=== PATIENT | female | born 1965 | race Caucasian/White ===

== ENCOUNTER 2017-05-18 18:48 | Emergency (ER) | payer OTHER ==
[~2017-05-18] VITALS: Ht 177.8 cm; Wt 90.7 kg
[2017-05-18] MEDS ORDERED: AMLODIPINE-BEN1 EAC5 PO (19:10)
[2017-05-18] MEDS ORDERED: ALPRAZOLAM0.25 M1 PO (19:11)
[2017-05-18] MEDS ORDERED: NEXIUM20 M1 PO (19:11)
[2017-05-18] MEDS ORDERED: POTASS PO (19:13)
[2017-05-18] MEDS ORDERED: MAG PO (19:13)
[2017-05-18] MEDS ORDERED: CAL PO (19:13)
--- NOTE | 2017-05-18 19:43 | ED GI/GU/ABDOMINAL COMPLAINT ---
History of Present Illness General Chief Complaint: Abdominal Pain/Flank Pain Stated Complaint: RIGHT LOWER ABD PAIN Source: patient Exam Limitations: no limitations Vital Signs & Intake/Output Vital Signs & Intake/Output Vital Signs Date Time Temp Pulse Resp B/P B/P Pulse O2 O2 Flow FiO2 Mean Ox Delivery Rate 05/18 1906 97.1 82 18 113/75 98 Room Air Allergies Coded Allergies: nitrofurantoin (From MACROBID) (Severe, HEART PALP 05/18/17) Reconcile Medications Alprazolam 0.25 MG TABLET 1 TAB PO QPM PRN SLEEP/ANXIETY (Reported) Amlodipine Besylate/Benazepril (Amlodipine-Benazepril 10-40 MG) 10 MG-40 MG CAPSULE 1 CAP PO DAILY BP (Reported) Esomeprazole Magnesium (Nexium) 20 MG CAPSULE.DR 1 CAP PO BID GI (Reported) Ondansetron (Zofran Odt) 4 MG TAB.RAPDIS 1 TAB SL TID PRN nausea [POTASS/MAG/SATURNINO] 1 CAP PO DAILY SUPPLEMENT (Reported) Triage Note: PT STATES THAT SHE HAS BEEN HAVING PAIN IN HER R SIDE ABD THAT HAS BEEN INCREASING IN INTENSITY SINCE YESTERDAY. 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 N/V. Triage Nurses Notes Reviewed? yes LMP (ages 10-50): hysterectomy ? N Is pt currently ? No Onset: Gradual Duration: week(s): Timing: recent history Quality/Severity: sharpness, severe Location: right lower quadrant HPI: 52-year-old female with history of lupus presents to emergency department complaining of right lower quadrant pain 2 weeks. Patient states that pain initially was mild however now she states pain is severe, stabbing. He is also complaining of nausea and bilious nonbloody vomiting for the past 5 days, she is not able to tolerate food by mouth. She is also complaining of diarrhea times > 1 month, nonbloody. She has intermittent fevers however this is normal for her due to her lupus. The patient admits to drinking 1 bottle of wine per day. She denies smoking or drug use. The patient has been seen for this pain in the past and had abdominal ultrasound done however she states that this ultrasound did not assess the area in which she is having pain. 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 She denies chills, cough, sore throat, dizziness, lightheadedness, chest pain, dyspnea. (JAMAAL YI PA-C) Past History Travel History Traveled to [place] past 21 day No Medical History Any Pertinent Medical History? 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 No (JAMAAL YI PA-C) Review of Systems Review of Systems Constitutional: Reports: no symptoms. EENTM: Reports: no symptoms. Respiratory: Reports: no symptoms. Cardiovascular: Reports: no symptoms. GI: Reports: see HPI. Genitourinary: Reports: no symptoms. Musculoskeletal: Reports: no symptoms. Skin: Reports: no symptoms. Neurological/Psychological: Reports: see HPI. Hematologic/Endocrine: Reports: no symptoms. Immunologic/Allergic: Reports: no symptoms. All Other Systems: Reviewed and Negative (JAMAAL YI PA-C) Physical Exam Physical Exam Gastrointestinal: SEE BELOW Comments: Well-developed well-nourished person in no acute distress HEENT: HEAD is atraumatic. moist mucous membranes. Neck: Supple, normal range of motion without pain or tenderness Back: Nontender, no CVA tenderness. Full range of motion Cardiovascular: Regular rate and rhythms no murmurs rubs or gallops Respiratory:No respiratory distress. Patient speaking in full complete sentences. Breath sounds clear to auscultation bilaterally: NO W/R/R Abdomen: Soft, RLQ tenderness, nondistended, no appreciable organomegaly. Normal bowel sounds. No rebound/guarding, No appreciable enlargement of the abdominal aorta, No ascites. Extremity: No edema, full range of motion of extremities Neuro: Alert oriented x3, motor sensory normal, There were no obvious focal neurologic abnormalities. Skin: No appreciable rash on exposed skin, skin is warm and dry. Psych: Mood and affect is normal, memory and judgment is normal. Core Measures ACS in differential dx? No Severe Sepsis Present: No Septic Shock Present: No (JAMAAL YI PA-C) Progress Differential Diagnosis: appendicitis, biliary colic, cholecystitis, diverticulitis, gastritis, hepatitis, inflamm bowel dis, SBO Plan of Care: Orders Procedure Date/time Status LIPASE 05/18 1943 Complete ETHANOL 05/18 1943 Complete COMPREHENSIVE METABOLIC PANEL 05/18 1943 Complete CBC WITHOUT DIFFERENTIAL 05/18 1943 Complete AMYLASE 05/18 1943 Complete Laboratory Tests 05/18/171946: Anion Gap 15, Estimated GFR > 60, BUN/Creatinine Ratio 11.3, Glucose 104 H, Calcium 9.5, Total Bilirubin 0.5, AST 148 H, ALT 128 H, Alkaline Phosphatase 122, Total Protein 7.0, Albumin 4.3, Globulin 2.7, Albumin/Globulin Ratio 1.6, Amylase 52, Lipase 286, CBC w Diff NO MAN DIFF REQ, RBC 4.41, MCV 99.0, MCH 34.1 H, RDW 13.3, MPV 8.4, Gran % 50.4, Lymphocytes % 42.9, Monocytes % 5.2, Eosinophils % 0.7, Basophils % 0.8, Absolute Granulocytes 3.7, Absolute Lymphocytes 3.1, Absolute Monocytes 0.4, Absolute Eosinophils 0, Absolute Basophils 0.1, PUBS MCHC 34.4, Serum Alcohol 281.0 CT scan is within normal limits, blood work shows mild elevation of liver enzymes, likely related to patient's daily alcohol consumption. The patient was discussed with Dr. Zhu. The patient was given Zofran for her nausea. The patient was instructed to follow-up with her GI doctor for further workup and possible further imaging and blood tests. The patient was also instructed to follow-up with her neurocritical care physician as this may be related to rule out immune condition. The patient was educated on alcohol consumption and the risks involved with daily alcohol use. The patient is nontoxic appearing, her vital signs are stable, she is in no acute distress. The patient is in agreement with the plan of care. (JAMAAL YI PA-C) Diagnostic Imaging: Viewed by Me: CT Scan. Discussed w/RAD: CT Scan. Radiology Impression: PATIENT: LUIS HALL PRESENT AGE: 52 PATIENT ACCOUNT NO: [id number] : 64 LOCATION: [facility] ORDERING PHYSICIAN: JAMAAL YI PA-C SERVICE DATE: 05/18/17 EXAM TYPE: CAT - CT ABD & PELVIS W IV CONTRAST EXAMINATION: CT ABDOMEN AND PELVIS with CONTRAST CLINICAL INFORMATION: Right lower quadrant pain. Nausea vomiting and diarrhea COMPARISON: None TECHNIQUE: Helical CT scan of abdomen and pelvis. IV contrast: 94 mL Optiray 320 Oral contrast: None Reconstruction: Coronal and sagittal reformatted images performed at CT scanner by the technologist. FINDINGS: LUNG BASES: The visualized lung bases are unremarkable. LIVER, GALLBLADDER, AND BILIARY TREE: Low-attenuation of liver parenchyma due to fatty change. No focal liver lesion. No intrahepatic bile duct dilatation. The gallbladder is unremarkable with no evidence of radiopaque gallstones, gallbladder wall thickening, or obvious pericholecystic inflammatory changes. PANCREAS: No acute change of the pancreas. No mass. No pancreatic duct dilatation. SPLEEN: Spleen normal in size and contour. No focal lesion. ADRENAL GLANDS: Adrenal glands are normal in size. No focal mass. KIDNEYS AND URETERS: The kidneys are normal in size, shape, and attenuation. No hydronephrosis, hydroureter, or calculi seen. No perinephric stranding. BLADDER: Unremarkable. GASTROINTESTINAL TRACT: The small and large bowel are unremarkable. The appendix is unremarkable. MESENTERY: No focal inflammation. No free fluid. No free air. ABDOMINAL WALL: No significant hernia is appreciated. LYMPH NODES: Normal. VASCULAR: Unremarkable. PELVIC VISCERA: Uterus is absent. No adnexal abnormality. OSSEOUS STRUCTURES: Unremarkable. IMPRESSION: No acute abnormality CT scan abdomen pelvis. Normal kidneys, ureter and bladder. Normal appendix. Normal pancreas. There is diffuse fatty change of liver. DICTATED BY: SAWYER SHARMA MD DATE/TIME DICTATED:05/18/172105 SHIP'S ENGINEER:CRYSTAL DATE/TIME TRANSCRIBED:05/18/172105 CONFIDENTIAL, DO NOT COPY WITHOUT APPROPRIATE AUTHORIZATION. <Electronically signed in Other Vendor System> SIGNED BY: SAWYER SHARMA MD 05/18/172115 Initial ED EKG: none (KASSIDY VINCENT,JAMAAL WAGONER) Departure Departure Disposition: HOME OR SELF CARE Condition: Stable Clinical Impression Primary Impression: Abdominal pain Secondary Impressions: Alcohol abuse, Nausea vomiting and diarrhea Referrals: ARASH LUCIO CLIENT SERVICE PROFESSIONAL,MARLENE (PCP/Family) Additional Instructions: Take Zofran as needed as prescribed for nausea. 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 This may also be related to your systemic lupus, call to inform your neurocritical care physician of these new symptoms, you may need to be on medication for lupus. Return with any worsening symptoms or concerns. Please note that there might be incidental findings in your evaluation that are unrelated to the current emergency department visit. Please notify your primary care doctor about this emergency department visit in order to obtain and review all of the testing performed so that these incidental findings can be monitored as needed. If you had an x-ray performed, please understand that some fractures may not be seen on the initial set of x-rays. If your symptoms persist you might need a repeat set of x-rays to check for such a fracture. If you had a laceration evaluated, please understand that foreign bodies such as glass or wood may not be visible to the naked eye or on plain x-rays. If the wound becomes red, swollen, increasingly more painful or if there is any drainage from the wound, please have it reevaluated by a physician for the possibility of a retained foreign body. If you're unable to follow up as outlined in the discharge instructions please return to the emergency department. Thank you for choosing the [facility] Emergency Department for your care. It was a pleasure to serve you today. Departure Forms: Customer Survey General Discharge Information Prescriptions: Current Visit Scripts Ondansetron (Zofran Odt) 1 TAB SL TID PRN nausea #15 TAB (KASSIDY VINCENT,JAMAAL WAGONER) PA/CARGO BROKER Co-Sign Statement Statement: ED Attending supervision documentation- [] I saw and evaluated the patient. I have also reviewed all the pertinent lab results and diagnostic results. I agree with the findings and the plan of care as documented in the PA's/CARGO BROKER's documentation. [X] I have reviewed the ED Record and agree with the PA's/CARGO BROKER's documentation. [] Additions or exceptions (if any) to the PAs/CARGO BROKER's note and plan are summarized below: [] (MARY LOPEZ,EDMUNDO)
[2017-05-18 20:07] LABS: ABSOLUTE BASOPHIL COUNT 0.1 /CUMM (0.0-0.2); ABSOLUTE EOSINOPHIL COUNT 0 /CUMM (0.0-0.7); ABSOLUTE GRANULOCYTE CT 3.7 /CUMM (1.4-6.5); ABSOLUTE LYMPH COUNT 3.1 /CUMM (1.2-3.4); ABSOLUTE MONOCYTE COUNT 0.4 /CUMM (0.10-0.60); BASOPHIL % 0.8 % (0.0-2.0); EOSINOPHIL % 0.7 % (0-5); GRANULOCYTE % 50.4 % (42.2-75.2); HEMATOCRIT 43.6 % (37-47); MEAN CORPUSCULAR HGB 34.1 PG (27.0-31.0); MEAN CORPUSCULAR HGB CONC 34.4 G/DL (33.0-37.0); MEAN PLATELET VOLUME 8.4 FL (7.4-10.4); PLATELET COUNT 280 /CUMM (130-400); RBC DISTRIBUTION WIDTH 13.3 % (11.5-14.5); RED BLOOD CELL CT 4.41 /CUMM (4.20-5.40); WHITE BLOOD CELL COUNT 7.3 /CUMM (4.8-10.8)
--- NOTE | 2017-05-18 21:16 | CT SCAN REPORT ---
EXAMINATION: CT ABDOMEN AND PELVIS with CONTRAST CLINICAL INFORMATION: Right lower quadrant pain. Nausea vomiting and diarrhea COMPARISON: None TECHNIQUE: Helical CT scan of abdomen and pelvis. IV contrast: 94 mL Optiray 320 Oral contrast: None Reconstruction: Coronal and sagittal reformatted images performed at CT scanner by the technologist. FINDINGS: LUNG BASES: The visualized lung bases are unremarkable. LIVER, GALLBLADDER, AND BILIARY TREE: Low-attenuation of liver parenchyma due to fatty change. No focal liver lesion. No intrahepatic bile duct dilatation. The gallbladder is unremarkable with no evidence of radiopaque gallstones, gallbladder wall thickening, or obvious pericholecystic inflammatory changes. PANCREAS: No acute change of the pancreas. No mass. No pancreatic duct dilatation. SPLEEN: Spleen normal in size and contour. No focal lesion. ADRENAL GLANDS: Adrenal glands are normal in size. No focal mass. KIDNEYS AND URETERS: The kidneys are normal in size, shape, and attenuation. No hydronephrosis, hydroureter, or calculi seen. No perinephric stranding. BLADDER: Unremarkable. GASTROINTESTINAL TRACT: The small and large bowel are unremarkable. The appendix is unremarkable. MESENTERY: No focal inflammation. No free fluid. No free air. ABDOMINAL WALL: No significant hernia is appreciated. LYMPH NODES: Normal. VASCULAR: Unremarkable. PELVIC VISCERA: Uterus is absent. No adnexal abnormality. OSSEOUS STRUCTURES: Unremarkable. IMPRESSION: No acute abnormality CT scan abdomen pelvis. Normal kidneys, ureter and bladder. Normal appendix. Normal pancreas. There is diffuse fatty change of liver.
[2017-05-18] MEDS ORDERED: ZOFRAN ODT4 M1 SL (22:44)
[2017-05-18 22:52] VITALS: BP 116/77
== END 2017-05-18 22:52 ==
LOC: ERH 18:48
PROVIDERS: Physician Assistant
DX: R11.2 Nausea with vomiting, unspecified (principal); R19.7 Diarrhea, unspecified; R10.31 Right lower quadrant pain
CPT/HCPCS: 74177; 96360; 96361; G0480